=== PATIENT | female | born 1950 | race Caucasian/White ===

== ENCOUNTER 2017-08-10 16:38 | Emergency (ER) | payer MEDICARE, BC ==
[~2017-08-10 16:38] MED LIST: MULT1TAB52 PO
[2017-08-10 16:45] VITALS: BP 135/73
[2017-08-10] MEDS ORDERED: FLUORESCEIN 1MG EYE STRIP. OS ONE (17:00)
[2017-08-10] MEDS ORDERED: TETRACAINE 0.5% OPHTH SOLUTION 4ML BOTTLE. OS ONE (17:00)
--- NOTE | 2017-08-10 17:19 | PHYS DOC ---
General Chief Complaint: EYE PROBLEMS Stated Complaint: EYE PROBLEM Time Seen by MD: 16:57 Source: patient Exam Limitations: no limitations Problems: History of Present Illness Initial Comments 67-year-old female who comes private auto complaining of left eye injury. Patient states earlier today she was doing yardwork when a small greenling branch with Doppler hitting her across the left side. She thinks her eye was shut when it hit her in says that it caused some mild discomfort in her eye was watering for a period afterwards. The discomfort is mostly resolved she developed does have some photophobia no foreign body sensation or purulent discharge no headache or vision change. Patient does not wear contact lenses she does wear reading glasses. 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) Surgical History: other (cardiac ablation) Social History Smoker: non-smoker Alcohol: none Drugs: none Constitutional: denies chills, denies diaphoresis, denies fever, denies malaise Eyes: see HPI Ears: denies dizziness, denies pain, denies tinnitus Nose: denies clots, denies congestion, denies epistaxis Throat: denies pain, denies swelling, denies discharge, denies neck stiffness Respiratory: denies cough, denies shortness of breath Cardiovascular: denies chest pain, denies palpitations Gastrointestinal: denies nausea, denies vomiting Neurological: denies headache, denies numbness, denies paresthesia, denies weakness Physical Exam General Appearance: WD/WN, no apparent distress Eyes: right eye normal inspection, left eye corneal abrasion (there is a linear corneal abrasion oriented transversely running across the anterior aspect of the iris no foreign bodies lids everted), bilateral eye PERRL, bilateral eye EOMI Nose: normal inspection Mouth/Throat: normal mouth inspection Neck: full range of motion, supple Cardiovascular/Respiratory: normal peripheral pulses, no respiratory distress 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 [id number] Tylenol and ibuprofen as needed. Prescription: Polytrim ophthalmic solution Follow-up with your eye doctor in 2-3 days for recheck. Return to ED with new or changing symptoms. Departure Disposition: 01 HOME, SELF-CARE Diagnosis: corneal abrasion left eye Condition: GOOD Patient Instructions: Eye - Corneal Abrasion, [id number]-[id number] Additional Instructions: Please review the patient education materials given by ED staff. [id number] Tylenol and ibuprofen as needed. Prescription: Polytrim ophthalmic solution Follow-up with your eye doctor in 2-3 days for recheck. Return to ED with new or changing symptoms. JESUS OLMSTEAD DO Aug 10, 2017 17:19
[2017-08-10] MEDS ORDERED: POLY10DR OS (17:20)
== END 2017-08-10 17:25 | disposition home or self-care (01) ==
LOC: ER 16:38
DX: S05.02XA Injury of conjunctiva and corneal abrasion without foreign body, left eye, initial encounter (principal); Z88.2 Allergy status to sulfonamides; Z88.0 Allergy status to penicillin; W22.8XXA Striking against or struck by other objects, initial encounter; Y93.89 Activity, other specified; Y99.8 Other external cause status; Y92.096 Garden or yard of other non-institutional residence as the place of occurrence of the external cause
CPT/HCPCS: 99283

== ENCOUNTER → 2019-11-13 | Outpatient (CLI) | payer MEDICARE, BC ==
[~2019-11-13] MED LIST changes: +ATOR10TA60 PO; +LORA10TA55 PO; +MULT-445 PO; -MULT1TAB52 PO; +POLY10DR OS; +VITA25006 PO
== END | disposition home or self-care (01) ==
LOC: LAB 09:15
PROVIDERS: ATTEND Registered Nurse
DX: Z01.818 Encounter for other preprocedural examination (principal); Z11.59 Encounter for screening for other viral diseases
CPT/HCPCS: 87635

== ENCOUNTER → 2019-11-17 | Day surgery (SDC) | payer MEDICARE, BC ==
[~2019-11-17] MED LIST changes: +ALBUTEROL SULFATE 2.5 MG/3 ML NEBU. NEB PRN; +BALANCED SALT IRRIG OPHTH SOLN 15 ML BOTTLE. IRR ONE; +CATARACT OPHTH GEL 0.5 ML SYRINGE. OS ONE; +CHONDROIT-SOD-HYALURONATE KIT. OS ONE; +EPINEPHrine AMPULE 0.5 MG in BALANCED SALT IRRIG SOLN PLUS 500 ML IO ONE; +ERYTHROMYCIN 0.5% OPHTH OINTMENT 1GM TUBE. OS ONE; +HYALURONIDASE 75UNITS in LIDOCAINE 2% PF OPHTH 10 ML SYRINGE. OS ONE; +IV RINGERS SOLUTION,LACTATED 1,000 ML IV SCH; +KETOROLAC TROMETHAMINE 0.5% OPHTH SOLUTION BOTTLE. ONE; +KETOROLAC TROMETHAMINE 0.5% OPHTH SOLUTION BOTTLE. OS SCH; +MOXIFLOXACIN 0.5% OPHTH SOLUTION 3ML BOTTLE. OS SCH; -MULT-445 PO; +MULT1TAB52 PO; +ONDANSETRON PF 4 MG/2 ML VIAL. IV PRN; +POVIDONE-IODINE 5% OPHTH SOLUTION 30ML BOTTLE. OS ONE; +TETRACAINE 0.5% OPHTH SOLUTION 4ML BOTTLE. OS ONE; +TETRACAINE 0.5% OPHTH SOLUTION 4ML BOTTLE. OU ONE; +prednisoLONE ACETATE 1% OPHTH SUSPENSION 5ML BOTTLE. ONE; +prednisoLONE ACETATE 1% OPHTH SUSPENSION 5ML BOTTLE. OS SCH
[2019-11-17] MEDS: MOXIFLOXACIN 0.5% OPHTH SOLUTION 3ML BOTTLE. OS SCH ×3 (09:58→10:06)
--- NOTE | 2019-11-17 10:43 | PDOC4 ---
Phaco/IFIS w/o Ring/OS Date of Procedure: November 17, 2019 Preoperative Diagnosis: 1. Senile Cataract, Left Eye 2. Anticipated Intraoperative Floppy Iris Syndrome Posoperative Diagnosis: 1. 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 Procedure: Procdeure: Left Phacoemulsification with Intraocular Lens Implant Findings: Senile Cataract Intraoperative Floppy Iris Syndrome Indications: Worsening vision interfering with patient's lifestyle Narrative: After discussing the risks, complications and alternatives, including but not limited to loss of vision, infection, bleeding, swelling, anesthetic reaction, capsule rupture with vitreous loss, etc., the patient was given a peribulbar block under mild IV sedation and cardiac monitoring. Pressure was applied to the eye for approximately 10 minutes. The patient was transferred to the main operating room and was prepped and draped in the usual sterile fashion and positioned under the microscope. A lid speculum was placed. A temporal clear corneal incision was made with a keratome and epi-Shugarcaine was injected into the anterior chamber, this was followed by injecting viscoelastic. A side port incision was made. A continuous tear capsulorrhexis was performed, then hydrodissection was accomplished with balanced salt solution. The phacoemulsification needle was placed in the eye and the nucleus was emulsified. The remaining cortical material was removed with the irrigation and aspiration apparatus. The capsule was polished as needed. The posterior capsule was noted to be clean and intact. Viscoelastic was injected into the eye inflating the capsular bag. An intraocular lens was injected into the eye, unfolding as desired and was positioned in the capsular bag. The viscoelastic was aspirated from the eye. The wound edges were hydrated with balanced salt solution and there were no leaks. Viscoelastic was injected over the limbal incisions. Antibiotic and steroid were placed on the eye. The lid speculum was removed, the eye patched shut and a Sherman shield applied. There were no complications and the patient was taken to the PACU in good condition. GRISEL AYOUB DO November 17, 2019 10:43
[2019-11-17 11:00] VITALS: BP 128/94
== END ==
LOC: SURG 08:28
PROVIDERS: ATTEND Ophthalmology
DX: H25.12 Age-related nuclear cataract, left eye (principal); H21.81 Floppy iris syndrome; E78.00 Pure hypercholesterolemia, unspecified; D64.9 Anemia, unspecified; Z86.73 Personal history of transient ischemic attack (TIA), and cerebral infarction without residual deficits; Z87.39 Personal history of other diseases of the musculoskeletal system and connective tissue; Z90.710 Acquired absence of both cervix and uterus
CPT/HCPCS: 66984; J0171; V2632

== ENCOUNTER → 2019-12-04 | Outpatient (CLI) | payer MEDICARE, BC ==
[2019-11-17 11:00] VITALS: BP 128/94
[~2019-12-04] MED LIST changes: -ALBUTEROL SULFATE 2.5 MG/3 ML NEBU. NEB PRN; -BALANCED SALT IRRIG OPHTH SOLN 15 ML BOTTLE. IRR ONE; -CATARACT OPHTH GEL 0.5 ML SYRINGE. OS ONE; -CHONDROIT-SOD-HYALURONATE KIT. OS ONE; -EPINEPHrine AMPULE 0.5 MG in BALANCED SALT IRRIG SOLN PLUS 500 ML IO ONE; -ERYTHROMYCIN 0.5% OPHTH OINTMENT 1GM TUBE. OS ONE; -HYALURONIDASE 75UNITS in LIDOCAINE 2% PF OPHTH 10 ML SYRINGE. OS ONE; -IV RINGERS SOLUTION,LACTATED 1,000 ML IV SCH; -KETOROLAC TROMETHAMINE 0.5% OPHTH SOLUTION BOTTLE. ONE; -KETOROLAC TROMETHAMINE 0.5% OPHTH SOLUTION BOTTLE. OS SCH; -MOXIFLOXACIN 0.5% OPHTH SOLUTION 3ML BOTTLE. OS SCH; +MULT-445 PO; -MULT1TAB52 PO; -ONDANSETRON PF 4 MG/2 ML VIAL. IV PRN; -POVIDONE-IODINE 5% OPHTH SOLUTION 30ML BOTTLE. OS ONE; -TETRACAINE 0.5% OPHTH SOLUTION 4ML BOTTLE. OS ONE; -TETRACAINE 0.5% OPHTH SOLUTION 4ML BOTTLE. OU ONE; -prednisoLONE ACETATE 1% OPHTH SUSPENSION 5ML BOTTLE. ONE; -prednisoLONE ACETATE 1% OPHTH SUSPENSION 5ML BOTTLE. OS SCH
== END | disposition home or self-care (01) ==
LOC: LAB 12-01 12:56
PROVIDERS: ATTEND Registered Nurse
DX: Z11.59 Encounter for screening for other viral diseases (principal)
CPT/HCPCS: C9803; U0003

== ENCOUNTER → 2019-12-08 | Day surgery (SDC) | payer MEDICARE, BC ==
[~2019-12-08] MED LIST changes: +BALANCED SALT IRRIG IO ONE; +BALANCED SALT IRRIG OPHTH SOLN 15 ML BOTTLE. IRR ONE; +BALANCED SALT IRRIG OPHTH SOLN 15 ML BOTTLE. ONE; +CATARACT OPHTH GEL 0.5 ML SYRINGE. OD ONE; +CHONDROIT-SOD-HYALURONATE KIT. OD ONE; +EPINEPHrine AMPULE 0.5 MG in BALANCED SALT IRRIG SOLN PLUS 500 ML IO ONE; +ERYTHROMYCIN 0.5% OPHTH OINTMENT 1GM TUBE. OD ONE; +HYALURONIDASE 75UNITS in LIDOCAINE 2% PF OPHTH 10 ML SYRINGE. OD ONE; +IPRATRPIUM/ALBUTEROL 0.5/2.5MG 3 ML NEBU. NEB PRN; +IV RINGERS SOLUTION,LACTATED 1,000 ML IV SCH; +KETOROLAC TROMETHAMINE 0.5% OPHTH SOLUTION BOTTLE. OD SCH; +MOXIFLOXACIN 0.5% OPHTH SOLUTION 3ML BOTTLE. OD SCH; +ONDANSETRON PF 4 MG/2 ML VIAL. IV PRN; +POVIDONE-IODINE 5% OPHTH SOLUTION 30ML BOTTLE. OD ONE; +PROPOFOL 10,000 MCG/ML (20ML) VIAL IV ONE; +TETRACAINE 0.5% OPHTH SOLUTION 4ML BOTTLE. OD ONE; +TETRACAINE 0.5% OPHTH SOLUTION 4ML BOTTLE. OU ONE; +prednisoLONE ACETATE 1% OPHTH SUSPENSION 5ML BOTTLE. OD SCH
[2019-12-08] MEDS: MOXIFLOXACIN 0.5% OPHTH SOLUTION 3ML BOTTLE. OD SCH ×3 (08:54→09:06)
--- NOTE | 2019-12-08 09:57 | PDOC4 ---
Phaco IOL/Cataract/OD Date of Procedure: Dec 08, 2019 Preoperative Diagnosis: Preoperative Diagnosis: Senile Cataract, Right Eye Postoperative Diagnosis: Senile Cataract, Right Eye Anesthesia: Local with monitored anesthesia care Surgeon: Grisel Ayoub D.O. Procedure: Right Phacoemulsification with Intraocular Lens Implant Findings: Senile Cataract Indications: Worsening vision interfering with patient's lifestyle Narrative: After discussing the risks, complications and alternatives, including but not limited to loss of vision, infection, bleeding, swelling, anesthetic reaction, capsule rupture with vitreous loss, etc., the patient was given a peribulbar block under mild IV sedation and cardiac monitoring. Pressure was applied to the eye for approximately 10 minutes. The patient was transferred to the main operating room and was prepped and draped in the usual sterile fashion and positioned under the microscope. A lid speculum was placed. A temporal clear corneal incision was made with a keratome and viscoelastic was injected into the eye. A side port incision was made. A continuous tear capsulorrhexis was performed, then hydrodissection was accomplished with balanced salt solution. The phacoemulsification needle was placed in the eye and the nucleus was emulsified. The remaining cortical material was removed with the irrigation and aspiration apparatus. The capsule was polished as needed. The posterior capsule was noted to be clean and intact. Viscoelastic was injected into the eye inflating the capsular bag. An intraocular lens was injected into the eye, unfolding as desired and was positioned in the capsular bag. The viscoelastic was aspirated from the eye. The wound edges were hydrated with balanced salt solution and there were no leaks. Viscoelastic was injected over the limbal incisions. Antibiotic and steroid were placed on the eye. The lid speculum was removed, the eye patched shut and a Sherman shield applied. There were no complications and the patient was taken to the PACU in good condition. GRISEL AYOUB DO Dec 08, 2019 09:57
[2019-12-08 10:15] VITALS: BP 144/75
== END ==
LOC: SURG 07:51
PROVIDERS: ATTEND Ophthalmology
DX: H25.11 Age-related nuclear cataract, right eye (principal); D64.9 Anemia, unspecified; E78.00 Pure hypercholesterolemia, unspecified; Z86.73 Personal history of transient ischemic attack (TIA), and cerebral infarction without residual deficits; Z98.890 Other specified postprocedural states; Z90.710 Acquired absence of both cervix and uterus
CPT/HCPCS: 66984; J0171; J2704; V2632

== ENCOUNTER 2020-04-01 14:52 | Emergency (ER) | payer MEDICARE, BC ==
[2019-12-08 10:15] VITALS: BP 144/75
[~2020-04-01] VITALS: Ht 160 cm; Wt 77.2 kg
[~2020-04-01 14:52] MED LIST changes: -BALANCED SALT IRRIG IO ONE; -BALANCED SALT IRRIG OPHTH SOLN 15 ML BOTTLE. IRR ONE; -BALANCED SALT IRRIG OPHTH SOLN 15 ML BOTTLE. ONE; -CATARACT OPHTH GEL 0.5 ML SYRINGE. OD ONE; -CHONDROIT-SOD-HYALURONATE KIT. OD ONE; -EPINEPHrine AMPULE 0.5 MG in BALANCED SALT IRRIG SOLN PLUS 500 ML IO ONE; -ERYTHROMYCIN 0.5% OPHTH OINTMENT 1GM TUBE. OD ONE; -HYALURONIDASE 75UNITS in LIDOCAINE 2% PF OPHTH 10 ML SYRINGE. OD ONE; -IPRATRPIUM/ALBUTEROL 0.5/2.5MG 3 ML NEBU. NEB PRN; -IV RINGERS SOLUTION,LACTATED 1,000 ML IV SCH; -KETOROLAC TROMETHAMINE 0.5% OPHTH SOLUTION BOTTLE. OD SCH; -MOXIFLOXACIN 0.5% OPHTH SOLUTION 3ML BOTTLE. OD SCH; -ONDANSETRON PF 4 MG/2 ML VIAL. IV PRN; -POVIDONE-IODINE 5% OPHTH SOLUTION 30ML BOTTLE. OD ONE; -PROPOFOL 10,000 MCG/ML (20ML) VIAL IV ONE; -TETRACAINE 0.5% OPHTH SOLUTION 4ML BOTTLE. OD ONE; -TETRACAINE 0.5% OPHTH SOLUTION 4ML BOTTLE. OU ONE; -prednisoLONE ACETATE 1% OPHTH SUSPENSION 5ML BOTTLE. OD SCH
--- NOTE | 2020-04-01 15:10 | PHYS DOC ---
Past History Past Medical History: Other Past Surgical History: Other Alcohol Use: None Drug Use: None General Adult EDM: Chief Complaint: MECHANICAL FALL HPI: HPI: Patient is a 69-year-old female who felt dizzy after getting off the commode around 4 AM. Patient fell and hit her left side. Patient has a mild left-sided headache and left-sided lower extremity pain. Patient denies any recent illnesses, fevers chills vomiting diarrhea chest pain or shortness of breath. Review of Systems: Review of Systems: Constitutional: Denies fever or chills Eyes: Denies change in visual acuity HENT: Denies nasal congestion or sore throat Respiratory: Denies cough or shortness of breath Cardiovascular: Denies chest pain or edema GI: Denies abdominal pain, nausea, vomiting, bloody stools or diarrhea : Denies dysuria Musculoskeletal: Denies back pain but has left-sided leg pain Integument: Denies rash Neurologic: Denies headache, focal weakness or sensory changes Endocrine: Denies polyuria or polydipsia Lymphatic: Denies swollen glands Psychiatric: Denies depression or anxiety Heart Score: Risk Factors: Risk Factors: DM, Current or recent (<one month) smoker, HTN, HLP, family history of CAD, obesity. Risk Scores: Score 0 - 3: 2.5% MACE over next 6 weeks - Discharge Home Score 4 - 6: 20.3% MACE over next 6 weeks - Admit for Clinical Observation Score 7 - 10: 72.7% MACE over next 6 weeks - Early Invasive Strategies Allergies: Allergies: Allergies Coded Allergies Type Severity Reaction Last Updated Verified Sulfa (Sulfonamide Antibiotics) Allergy Severe swelling lips 12/02/19 Yes Penicillins Allergy Intermediate dizzy 12/02/19 Yes Physical Exam: PE: Constitutional: Well developed, well nourished, no acute distress, non-toxic appearance. [] HENT: Mild tenderness on the left frontal area, bilateral external ears normal, no trismus, nose normal. [] Eyes: PERRLA, EOMI, conjunctiva normal, no discharge. [] Neck: Normal range of motion, no tenderness, supple, no stridor. [] Cardiovascular:Heart rate regular rhythm,, peripheral pulses intact, cap refill brisk Lungs & Thorax: Bilateral breath sounds clear, no respiratory distress, mild tenderness to palpate left lower ribs Abdomen: Bowel sounds normal, soft, no tenderness, no masses, no pulsatile masses. [] Skin: Warm, dry, no erythema, no rash. Bruising to the left lateral thigh left knee left tib-fib and right knee Back: No tenderness, no CVA tenderness. [] Extremities: Mild tenderness to palpate left thigh left knee left tib-fib and right knee, neurovascular intact distally Neurologic: Alert and oriented X 3, normal motor function, normal sensory function, no focal deficits noted. [] Psychologic: Affect normal, judgement normal, mood normal. [] Current Patient Data: Labs: Laboratory Tests Test 04/01/20 15:15 White Blood Count 5.3 x10^3/uL Red Blood Count 4.47 x10^6/uL Hemoglobin 13.8 g/dL Hematocrit 40.8 % Mean Corpuscular Volume 91 fL Mean Corpuscular Hemoglobin 31 pg Mean Corpuscular Hemoglobin Concent 34 g/dL Red Cell Distribution Width 13.3 % Platelet Count 177 x10^3/uL Neutrophils (%) (Auto) 79 % Lymphocytes (%) (Auto) 12 % Monocytes (%) (Auto) 9 % Eosinophils (%) (Auto) 0 % Basophils (%) (Auto) 0 % Neutrophils # (Auto) 4.2 x10^3uL Lymphocytes # (Auto) 0.6 x10^3/uL Monocytes # (Auto) 0.5 x10^3/uL Eosinophils # (Auto) 0.0 x10^3/uL Basophils # (Auto) 0.0 x10^3/uL Sodium Level 139 mmol/L Potassium Level 3.2 mmol/L Chloride Level 98 mmol/L Carbon Dioxide Level 32 mmol/L Anion Gap 9 Blood Urea Nitrogen 19 mg/dL Creatinine 1.0 mg/dL Estimated GFR (Cockcroft-Gault) 54.8 Glucose Level 121 mg/dL Calcium Level 8.5 mg/dL Troponin I Quantitative 0.018 ng/mL Current Medications Medications (Trade) Dose Ordered Sig/Bebeto Route PRN Reason Start Time Stop Time Status Last Admin Dose Admin Acetaminophen (Tylenol) 650 mg 1X ONCE PO 04/01/20 15:15 04/01/20 15:16 DC 04/01/20 15:19 Potassium Chloride (Klor-Con) 40 meq 1X ONCE PO 04/01/20 16:15 04/01/20 16:16 DC 04/01/20 16:11 EKG: EKG: [] EKG interpreted by me normal sinus rhythm with rate 89 normal axis normal intervals inverted T wave in V1-V3. These T wave inversions are unchanged from EKG in 2016 Radiology/Procedures: Radiology/Procedures: [][address] [address] IMAGING REPORT Signed PATIENT: TRACIE HE ACCOUNT: [id number] : 1950 LOCATION: ER AGE: 69 SEX: F EXAM STATUS: REG ER ORD. PHYSICIAN: GISSELL COX MD REASON: Fall, headache PROCEDURE: CT HEAD WO CONTRAST CT head without contrast PQRS statement: CT scans at this facility use dose reduction including either automated exposure control, iterative reconstructions, and /or weight based radiation dosing via mA and kV modification when appropriate to reduce radiation dose to as low as reasonably achievable. HISTORY: Fall, headache. COMPARISON: CT head August 20, 2015. FINDINGS: No intracranial hemorrhage, mass, hydrocephalus, extra-axial fluid collections or infarction. No acute ischemic change. Orbits, mastoids and bones are unremarkable. IMPRESSION: No acute abnormality. Electronically signed by: Julian Farley MD (04/01/2020 3:44 PM) [facility] DICTATED AND SIGNED BY: JULIAN FARLEY MD DATE: 04/01/20 1544 CC: GISSELL COX MD; VALENCIA ESCOBAR MD ~ [address] [address] IMAGING REPORT Signed PATIENT: TRACIE HE ACCOUNT: [id number] : 1950 LOCATION: ER AGE: 69 SEX: F EXAM STATUS: REG ER ORD. PHYSICIAN: GISSELL COX MD REASON: Fall, right sided chest pain PROCEDURE: PORTABLE CHEST 1V EXAM: PORTABLE CHEST 1V 04/01/2020 3:05 PM CLINICAL INDICATION: Fall, right-sided chest pain COMPARISON: None TECHNIQUE: PA view of the chest FINDINGS: The heart and mediastinum are normal. Lungs are well-expanded and clear. No consolidation, pleural effusion, or pneumothorax. Pulmonary vascularity is normal. The thoracic skeleton is intact. IMPRESSION: Normal chest radiograph. Electronically signed by: Betty Whitley MD (04/01/2020 4:00 PM) [id number] DICTATED AND SIGNED BY: BETTY WHITLEY MD DATE: 04/01/20 1600 CC: GISSELL COX MD; VALENCIA ESCOBAR MD ~ [place] [address] IMAGING REPORT Signed PATIENT: TRACEI HE ACCOUNT: [id number] : 1950 LOCATION: ER AGE: 69 SEX: F EXAM STATUS: REG ER ORD. PHYSICIAN: GISSELL COX MD REASON: Fall, pelvic and left leg pain PROCEDURE: LEFT FEMUR XRAY EXAM: TIBIA FIBULA LEFT, PELVIS, LEFT FEMUR XRAY 04/01/2020 3:05 PM CLINICAL INDICATION:Fall, pelvic and leg pain COMPARISON:None TECHNIQUE:AP view the pelvis, AP and lateral views of the left femur, and AP and lateral views of left tibia and fibula FINDINGS: Pelvis: No acute fracture. Alignment is normal. There is a 3.0 x 2.0 cm somewhat geographic sclerotic lesion in the supra-acetabular left iliac bone. Additional 1.2 cm sclerotic lesion in the supra-acetabular right iliac bone. Hip joint spaces, pubic symphysis, sacroiliac joints are normal. There is lower lumbar facet arthrosis. Left hip: Left supra-acetabular iliac bone lesion, as described. No acute fracture or malalignment. Left tibia and fibula: No acute fracture. Alignment is normal. IMPRESSION: 1. No acute osseous abnormalities the pelvis, left femur, or left tibia and fibula. 2. 2 sclerotic lesions in the pelvis. One is a 3 cm, somewhat geographic sclerotic lesion in the supra-acetabular left iliac bone that could be sequela of bone grafting or could be a sclerotic bone lesion. There is a smaller, 1.2 cm sclerotic bone lesion in the supra-acetabular right iliac bone. Metastatic disease is possible. Electronically signed by: Betty Whitley MD (04/01/2020 4:06 PM) [id number] DICTATED AND SIGNED BY: BETTY WHITLEY MD DATE: 04/01/20 1606 CC: GISSELL COX MD; VALENCIA ESCOBAR MD ~ [address] [address] IMAGING REPORT Signed PATIENT: TRACIE HE ACCOUNT: [id number] : 1950 LOCATION: ER AGE: 69 SEX: F EXAM STATUS: REG ER ORD. PHYSICIAN: GISSELL COX MD REASON: Fall, right knee pain PROCEDURE: KNEE RIGHT 3V 3 view study of the right knee Clinical indications: Fall with right knee pain FINDINGS: No acute fracture or dislocation or lytic process evident. There is mild spurring without joint space narrowing of the medial and lateral tibial femoral joint compartments. No significant right knee joint effusion is seen radiographically. IMPRESSION: No acute fracture. Electronically signed by: Catarina Chiu MD (04/01/2020 4:01 PM) [id number] DICTATED AND SIGNED BY: CATARINA CHIU MD DATE: 04/01/20 1601 CC: GISSELL COX MD; VALENCIA ESCOBAR MD ~ Course & Med Decision Making: Course & Med Decision Making Pertinent Labs and Imaging studies reviewed. (See chart for details) [] Patient reassessed at 4:47 PM and clinically stable. Patient's work-up is unremarkable other than mild hypokalemia. Discussed with patient the sclerotic lesions on her pelvis film and need for follow-up with her doctor and possible bone scan. Patient's hypokalemia has been treated. Offered patient admission for syncope but patient declined that she is awaiting to go to. Dragon Disclaimer: Visualase Disclaimer: This electronic medical record was generated, in whole or in part, using a voice recognition dictation system. Departure Departure: Impression: Primary Impression: Syncope Additional Impressions: Hypokalemia Contusion of left leg Contusion of right knee Disposition: 01 HOME/RESIDENCE PRIOR TO ADM Condition: STABLE Referrals: VALENCIA ESCOBAR MD (PCP) 2-3 days Patient Instructions: Contusion, Hypokalemia, Syncope Additional Instructions: EMERGENCY DEPARTMENT GENERAL DISCHARGE INSTRUCTIONS THANK YOU for coming to [facility] Emergency Department (ED) today and trusting us with your care. We trust that you had a positive experience in our Emergency Department. If you wish to speak to the department Management you can contact the emergency department at YOUR FOLLOW UP INSTRUCTIONS ARE FOLLOWS: Do you have a private doctor? If you do not have a private doctor, please ask for a resource list of physicians or clinics that may be able to assist you with follow up care. The Emergency Physician has interpreted your x-rays. The X-ray specialist will also review them. If there is a change in the findings you will be notified in 48 hours when at all possible. A lab test or lab culture may have been done, your results will be reviewed and you will be notified if you need a change in treatment. ADDITIONAL INSTRUCTIONS AND INFORMATION Your care today has been supervised by a physician who is specially trained in emergency care. Many problems require more than one evaluation for a complete diagnosis and treatment. We recommend that you schedule your follow up appointment as recommended to ensure complete treatment of your illness or injury. If you are unable to obtain follow up care and continue to have a problem, or if your condition worsens we recommend that you return to the ED. We are not able to safely determine your condition over the phone nor are we able to give sound medical advice over the phone. For these safety reasons, if you call for medical advice we will ask you to come to the ED for further evaluation If you have any questions regarding these discharge instructions please call the ED at . SAFETY INFORMATION In the interest of safety, wellness, and injury prevention; we encourage you to wear your seatbelt, if you smoke; quit smoking, and we encourage your family to use pro tective helmet for bicycling and other sporting events that present an increased risk for head injury. IF YOUR SYMPTOMS WORSEN OR NEW SYMPTOMS DEVELOP, OR YOU HAVE CONCERNS ABOUT YOUR CONDITION; OR IF YOUR CONDITION WORSENS WHILE YOU ARE WAITING FOR YOUR FOLLOW UP APPOINTMENT; EITHER CONTACT YOUR PRIMARY CARE DOCTOR, THE PHYSICIAN WHOSE NAME AND NUMBER YOU WERE GIVEN, OR RETURN TO THE ED IMMEDIATELY. Follow-up with your doctor regarding the sclerotic lesions on your pelvis x-ray and need for possible bone scan Justification of Admission: Justification of Admission: Justification of Admission Dx: N/A GISSELL COX MD Apr 01, 2020 15:10
[2020-04-01] MEDS ORDERED: ACETAMINOPHEN 325 MG TABLET PO ONE (15:15)
--- NOTE | 2020-04-01 15:19 | EKG ---
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
[2020-04-01 15:40] LABS: CALCIUM 8.5 mg/dL (8.5-10.1); GFR 54.8; POTASSIUM 3.2 mmol/L (3.5-5.1)
[2020-04-01 15:41] LABS: BASO % 0 % (0-3); EOS % 0 % (0-3); HEMATOCRIT 40.8 % (36.0-47.0); HEMOGLOBIN 13.8 g/dL (12.0-15.5); LYMPH # 0.6 x10^3/uL (1.0-4.8); LYMPH % 12 % (24-48); MEAN CORPUSCULAR HEMOGLOBIN 31 pg (25-35); MEAN CORPUSCULAR HGB CONC 34 g/dL (31-37); MEAN CORPUSCULAR VOLUME 91 fL (79-100); MONO # 0.5 x10^3/uL (0.0-1.1); MONO % 9 % (0-9); NEUT # 4.2 x10^3uL (1.8-7.7); NEUT % 79 % (31-73); PLATELET COUNT 177 x10^3/uL (140-400); RED BLOOD COUNT 4.47 x10^6/uL (3.50-5.40); RED CELL DISTRIBUTION WIDTH 13.3 % (11.5-14.5); WHITE BLOOD COUNT 5.3 x10^3/uL (4.0-11.0)
--- NOTE | 2020-04-01 15:46 | RAD ---
CT head without contrast PQRS statement: CT scans at this facility use dose reduction including either automated exposure control, iterative reconstructions, and /or weight based radiation dosing via mA and kV modification when appropriate to reduce radiation dose to as low as reasonably achievable. HISTORY: Fall, headache. COMPARISON: CT head August 20, 2015. FINDINGS: No intracranial hemorrhage, mass, hydrocephalus, extra-axial fluid collections or infarction. No acute ischemic change. Orbits, mastoids and bones are unremarkable. IMPRESSION: No acute abnormality. Electronically signed by: Hector Farley MD (04/01/2020 3:44 PM) [facility]
--- NOTE | 2020-04-01 16:03 | RAD ---
EXAM: PORTABLE CHEST 1V 04/01/2020 3:05 PM CLINICAL INDICATION: Fall, right-sided chest pain COMPARISON: None TECHNIQUE: PA view of the chest FINDINGS: The heart and mediastinum are normal. Lungs are well-expanded and clear. No consolidation, pleural effusion, or pneumothorax. Pulmonary vascularity is normal. The thoracic skeleton is intact. IMPRESSION: Normal chest radiograph. Electronically signed by: Betty Whitley MD (04/01/2020 4:00 PM) [id number]
--- NOTE | 2020-04-01 16:04 | RAD ---
3 view study of the right knee Clinical indications: Fall with right knee pain FINDINGS: No acute fracture or dislocation or lytic process evident. There is mild spurring without joint space narrowing of the medial and lateral tibial femoral joint compartments. No significant right knee joint effusion is seen radiographically. IMPRESSION: No acute fracture. Electronically signed by: Fabrizio Chiu MD (04/01/2020 4:01 PM) [id number]
--- NOTE | 2020-04-01 16:09 | RAD ---
EXAM: TIBIA FIBULA LEFT, PELVIS, LEFT FEMUR XRAY 04/01/2020 3:05 PM CLINICAL INDICATION:Fall, pelvic and leg pain COMPARISON:None TECHNIQUE:AP view the pelvis, AP and lateral views of the left femur, and AP and lateral views of left tibia and fibula FINDINGS: Pelvis: No acute fracture. Alignment is normal. There is a 3.0 x 2.0 cm somewhat geographic sclerotic lesion in the supra-acetabular left iliac bone. Additional 1.2 cm sclerotic lesion in the supra-acetabular right iliac bone. Hip joint spaces, pubic symphysis, sacroiliac joints are normal. There is lower lumbar facet arthrosis. Left hip: Left supra-acetabular iliac bone lesion, as described. No acute fracture or malalignment. Left tibia and fibula: No acute fracture. Alignment is normal. IMPRESSION: 1. No acute osseous abnormalities the pelvis, left femur, or left tibia and fibula. 2. 2 sclerotic lesions in the pelvis. One is a 3 cm, somewhat geographic sclerotic lesion in the supra-acetabular left iliac bone that could be sequela of bone grafting or could be a sclerotic bone lesion. There is a smaller, 1.2 cm sclerotic bone lesion in the supra-acetabular right iliac bone. Metastatic disease is possible. Electronically signed by: Betty Whitley MD (04/01/2020 4:06 PM) [id number]
[2020-04-01] MEDS ORDERED: POTASSIUM CHLORIDE 20 MEQ TABLET.ER. PO ONE (16:15)
== END 2020-04-01 16:59 | disposition home or self-care (01) ==
LOC: ER 14:52
DX: S80.12XA Contusion of left lower leg, initial encounter (principal); S80.01XA Contusion of right knee, initial encounter; R55 Syncope and collapse; E87.6 Hypokalemia; Z88.2 Allergy status to sulfonamides; Z88.0 Allergy status to penicillin; W18.39XA Other fall on same level, initial encounter; Y93.89 Activity, other specified; Y92.89 Other specified places as the place of occurrence of the external cause; Y99.8 Other external cause status
CPT/HCPCS: 36415; 70450; 71045; 72170; 73552; 73562; 73590; 80048; 84484; 85025; 93005; 99285

== ENCOUNTER → 2021-05-15 | Outpatient (CLI) | payer MEDICARE, BC ==
[2019-12-08 10:15] VITALS: BP 144/75
[~2021-05-15] MED LIST changes: +LORA-52 PO; -LORA10TA55 PO
--- NOTE | 2021-05-15 13:57 | RAD ---
Bilateral digital screening 2-D and 3-D (tomosynthesis) mammogram: Reason for examination: Routine screening. Comparison is made to previous mammogram from 01/06/2015. Bilateral mammograms in CC and oblique projections were obtained with 2-D imaging and 3-D tomosynthes is imaging and reviewed on the workstation. Interpretation was made with the benefit of CAD. Findings: Breast density: Category D. The breasts are extremely dense which lowers sensitivity of mammography. There are no suspicious masses, malignant appearing calcifications or architectural distortion. There are multiple bilateral oval circumscribed masses. 2 on the right contain biopsy markers. Impression: No evidence of malignancy. ASSESSMENT: BI-RADS 2. Benign findings. Recommendations: Routine screening mammograms. This patient's information has been entered into a reminder system for the patient to be notified wit h the results of her examination and a target date for the next mammogram. Your patient's mammogram demonstrates that she has dense breast tissue (breast density category C or D), which could hide abnormalities, and if she has other risk factors for breast cancer that have bee n identified, she might benefit from supplemental screening tests that may be suggested by you as her ordering physician. Dense breast tissue, in and of itself, is a relatively common condition. Therefo re, this information is not provided to cause undue concern, but rather to raise your awareness and t o promote discussion with your patient regarding the presence of other risk factors, in addition to d ense breast tissue. Electronically signed by: Joanna Hay MD (05/15/2021 1:55 PM) [id number]
== END ==
LOC: MAMMO 08:29
PROVIDERS: ATTEND Physician Assistant
DX: Z12.31 Encounter for screening mammogram for malignant neoplasm of breast (principal)
CPT/HCPCS: 77063; 77067